=== PATIENT | female | born 1995 | race Hispanic/Latino ===

== ENCOUNTER 2022-12-25 00:35 | Inpatient (IN) | payer BC ==
[~2022-12-25] VITALS: Ht 170.2 cm; Wt 74.8 kg
[2022-12-25] VITALS (21 sets, daily range): BP systolic 94–135; BP diastolic 47–83; PULSE 84–127; RESP 11–30; TEMP 99.1–100; O2SAT 94–100
[2022-12-25] MEDS ORDERED: SODIUM CHLORIDE 0.9% 1000ML 1,000 ML IV STA ×2 (00:40→00:46)
[2022-12-25] MEDS ORDERED: SODIUM CHLORIDE 0.9% 1000ML 1,000 ML ONE (00:50)
[2022-12-25] MEDS ORDERED: SODIUM CHLORIDE 0.9% 1000ML 1,000 ML IV ONE (01:00)
[2022-12-25 01:06] LABS: ABG HCO3 4 mmol/L (22-26); ABG PCO2 11 mmHg (35-45); ABG PO2 128 mmHg (80-105); ABG TCO2 < 5
[2022-12-25] MEDS ORDERED: ONDANSETRON HCL INJ 2MG/ML 2ML 2 MG/ML VIAL ONE (01:13)
[2022-12-25] MEDS: ONDANSETRON HCL INJ 2MG/ML 2ML 2 MG/ML VIAL IV PRN ×3 (01:13→14:56)
[2022-12-25 01:15] LABS: BASOPHILS % 0.3 % (0.0-1.0); EOSINOPHILS % 0.1 % (0.0-6.0); HEMATOCRIT 41.9 % (34.2-44.1); HEMOGLOBIN 13.3 g/dL (12.0-16.0); LYMPHOCYTES # (AUTO) 1.9 (1.0-3.2); LYMPHOCYTES % 16.6 % (18.0-39.1); MEAN CORPUSCULAR HEMOGLOBIN 28.7 pg (28-32); MEAN CORPUSCULAR HGB CONC 31.7 g/dL (31-35); MEAN CORPUSCULAR VOLUME 90.3 fL (81-99); MONOCYTES # (AUTO) 0.6 (0.2-0.8); MONOCYTES % 5.1 % (4.4-11.3); NEUTROPHILS # (AUTO) 8.7 (2.1-6.9); PLATELET COUNT 394 x10e3/uL (140-360); RED BLOOD COUNT 4.64 x10e6/uL (3.6-5.1); RED CELL DISTRIBUTION WIDTH 13.4 % (11.7-14.4); WHITE BLOOD COUNT 11.27 x10e3/uL (4.8-10.8)
[2022-12-25] MEDS: DEXTROSE 5%/0.45% SOD CHL 1,000 ML IV SCH ×3 (01:15→12:35)
[2022-12-25] MEDS ORDERED: POTASSIUM CHLORIDE 20MEQ/100ML 200 ML IV PRN ×2 (01:15→11:15)
[2022-12-25] MEDS ORDERED: Morphine 4mg INJECTION 4 MG/ML INJ IV PRN (01:15)
[2022-12-25] MEDS ORDERED: MAGNESIUM SULF 1GRAM/DEXTROSE 100 ML IV PRN ×2 (01:15→11:15)
[2022-12-25] MEDS: INSULIN REGULAR, HUMAN 3ML VL 100 UNIT in SODIUM CHLORIDE 0.9% 100 ML IV SCH ×4 (01:21→10:20)
[2022-12-25 01:29] LABS: ALANINE AMINOTRANSFERASE 22 IU/L (0-55); ALBUMIN/GLOBULIN RATIO 0.9 (0.8-2.0); ALKALINE PHOSPHATASE 131 IU/L (40-150); ANION GAP 38.3 mmol/L (8-16); BILIRUBIN,TOTAL 0.6 mg/dL (0.2-1.2); BLOOD UREA NITROGEN 14 mg/dL (7-26); BUN/CREATININE RATIO 7 (6-25); CALCIUM 9.5 mg/dL (8.4-10.2); CHLORIDE 94 mmol/L (98-107); EST GLOMERULAR FILTRATION RATE 33 ML/MIN (>=60); POTASSIUM 5.3 mmol/L (3.5-5.1); SODIUM 132 mmol/L (136-145); TOTAL PROTEIN 8.4 g/dL (6.5-8.1)
[2022-12-25 01:33] LABS: CARBON DIOXIDE 5 mmol/L (22-29); GLUCOSE > 800 mg/dL (74-118)
[2022-12-25] MEDS ORDERED: PROMETHAZINE 25MG/ NS 50ML (IV) IV STA (01:50)
[2022-12-25] MEDS ORDERED: IOPAMIDOL 370 MG/ML 100 ML INFUS..BTL INJ ONE (02:09)
[2022-12-25 02:26] LABS: AMPHETAMINES SCREEN,URINE NEGATIVE (NEGATIVE); BENZODIAZEPINES SCREEN,URINE NEGATIVE (NEGATIVE); BILIRUBIN,URINE NEGATIVE (NEGATIVE); CANNABINOIDS SCREEN,URINE NEGATIVE (NEGATIVE); CLARITY,URINE CLEAR (CLEAR); COLOR,URINE YELLOW (YELLOW); GLUCOSE, URINE 500 (NEGATIVE); KETONES,URINE >=160 (NEGATIVE); LEUKOCYTE ESTERASE ,URINE NEGATIVE (NEGATIVE); METHADONE SCREEN, URINE NEGATIVE (NEGATIVE); NITRITE,URINE NEGATIVE (NEGATIVE); OPIATES SCREEN,URINE NEGATIVE (NEGATIVE); PH,URINE 5.5 (5 - 7); PHENCYCLIDINE SCREEN,URINE NEGATIVE (NEGATIVE); PROTEIN,URINE DIPSTICK NEGATIVE (NEGATIVE); URINE UROBILINOGEN 0.2 mg/dL (0.2 - 1)
[2022-12-25] MEDS ORDERED: HUMULIN R100 UNIT/2 SQ (03:15)
[2022-12-25] MEDS ORDERED: LANTUS 3ML100 UNITS/ SQ ×2 (03:15)
[2022-12-25 03:56] LABS: BACTERIA,URINE FEW /HPF; EPITHELIAL CELLS,URINE FEW /LPF; RBC,URINE 0-5 /HPF (0-5); WBC,URINE (MAN) 0-5 /HPF (0-5)
[2022-12-25] MEDS: SODIUM CHLORIDE 0.9% 1000ML 1,000 ML IV SCH ×2 (04:02→08:22)
[2022-12-25 06:00] LABS: ANION GAP 25.2 mmol/L (8-16); CALCIUM 8.5 mg/dL (8.4-10.2); CREATININE, SERUM 1.53 mg/dL (0.57-1.11)
[2022-12-25 06:08] LABS: POTASSIUM 4.2 mmol/L (3.5-5.1)
[2022-12-25] MEDS ORDERED: DEXTROSE 50% SYRINGE 50 ML IV ONE (07:30)
[2022-12-25] MEDS ORDERED: REMDESIVIR 100MG 200 MG in SODIUM CHLORIDE 0.9% 100 ML IV ONE (10:00)
[2022-12-25 11:04] LABS: ANION GAP 15.9 mmol/L (8-16); CALCIUM 8.3 mg/dL (8.4-10.2); MAGNESIUM 1.8 MG/DL (1.3-2.1); POTASSIUM 3.9 mmol/L (3.5-5.1)
[2022-12-25 11:21] LABS: CREATININE, SERUM 1.2 mg/dL (0.57-1.11)
[2022-12-25] MEDS ORDERED: DEXTROSE 50% SYRINGE 50 ML IV PRN ×2 (11:30→13:45)
[2022-12-25] MEDS ORDERED: INSULIN REGULAR, HUMAN 3ML VL 100 UNIT in SODIUM CHLORIDE 0.9% 100 ML IV SCH ×2 (13:45)
[2022-12-25 13:47] LABS: ANION GAP 12.2 mmol/L (8-16); CREATININE, SERUM 1.09 mg/dL (0.57-1.11); MAGNESIUM 1.6 MG/DL (1.3-2.1); POTASSIUM 3.2 mmol/L (3.5-5.1)
[2022-12-25] MEDS ORDERED: D5.45%NS/KCL 20MEQ 1,000 ML IV SCH (14:30)
[2022-12-25] MEDS: D5.45%NS/KCL 20MEQ 1,000 ML IV SCH ×2 (14:46→22:27)
[2022-12-25] MEDS: ACETAMINOPHEN 325 MG TAB PO PRN (14:57)
[2022-12-25] MEDS: ENOXAPARIN SOD INJ 40 MG/0.4 ML SYR SC SCH (16:51)
[2022-12-26] VITALS (20 sets, daily range): BP systolic 100–129; BP diastolic 60–89; PULSE 74–105; RESP 16–26; TEMP 98.6–99; O2SAT 96–100
[2022-12-26] MEDS: D5.45%NS/KCL 20MEQ 1,000 ML IV SCH ×4 (05:18→19:39)
[2022-12-26 06:21] LABS: BASOPHILS % 0.2 % (0.0-1.0); EOSINOPHILS % 0.3 % (0.0-6.0); HEMATOCRIT 33.7 % (34.2-44.1); HEMOGLOBIN 11.4 g/dL (12.0-16.0); LYMPHOCYTES # (AUTO) 1.9 (1.0-3.2); LYMPHOCYTES % 31.9 % (18.0-39.1); MEAN CORPUSCULAR HEMOGLOBIN 28.4 pg (28-32); MEAN CORPUSCULAR HGB CONC 33.8 g/dL (31-35); MONOCYTES # (AUTO) 0.5 (0.2-0.8); MONOCYTES % 7.7 % (4.4-11.3); NEUTROPHILS # (AUTO) 3.6 (2.1-6.9); NEUTROPHILS % 59.4 % (38.7-80.0); PLATELET COUNT 289 x10e3/uL (140-360); RED BLOOD COUNT 4.01 x10e6/uL (3.6-5.1); RED CELL DISTRIBUTION WIDTH 13.1 % (11.7-14.4); WHITE BLOOD COUNT 6.09 x10e3/uL (4.8-10.8)
[2022-12-26 06:49] LABS: ALBUMIN 2.8 g/dL (3.5-5.0); ALBUMIN/GLOBULIN RATIO 0.9 (0.8-2.0); ANION GAP 13.3 mmol/L (8-16); BILIRUBIN,TOTAL 0.5 mg/dL (0.2-1.2); CREATININE, SERUM 0.87 mg/dL (0.57-1.11); POTASSIUM 3.3 mmol/L (3.5-5.1); TOTAL PROTEIN 5.9 g/dL (6.5-8.1)
[2022-12-26] MEDS: ONDANSETRON HCL INJ 2MG/ML 2ML 2 MG/ML VIAL IV PRN (08:47)
[2022-12-26] MEDS: ACETAMINOPHEN 325 MG TAB PO PRN (08:48)
[2022-12-26] MEDS ORDERED: POTASSIUM CHLORIDE 20 MEQ TAB CR PO ONE (12:45)
[2022-12-26] MEDS ORDERED: REMDESIVIR 100MG 100 MG in SODIUM CHLORIDE 0.9% 100 ML IV SCH (14:00)
[2022-12-26] MEDS ORDERED: DEXTROSE 50% SYRINGE 50 ML IV PRN (14:30)
[2022-12-26] MEDS: INSULIN LISPRO 100 UNIT/1 ML 3ML VIAL SQ SCH ×4 (14:57→21:00)
[2022-12-26] MEDS: ENOXAPARIN SOD INJ 40 MG/0.4 ML SYR SC SCH (16:18)
[2022-12-26] MEDS ORDERED: INSULIN GLARGINE 100 UNITS/ML VIAL SQ SCH (17:00)
[2022-12-27] VITALS (12 sets, daily range): BP systolic 105–133; BP diastolic 59–89; PULSE 59–107; RESP 16–21; TEMP 97.8–98.6; O2SAT 94–99
[2022-12-27 06:28] LABS: ANION GAP 13.7 mmol/L (8-16); CALCIUM 8.1 mg/dL (8.4-10.2); CREATININE, SERUM 0.97 mg/dL (0.57-1.11); MAGNESIUM 1.5 MG/DL (1.3-2.1)
[2022-12-27 06:41] LABS: POTASSIUM 4.7 mmol/L (3.5-5.1)
[2022-12-27 07:48] LABS: BASOPHILS % 0.4 % (0.0-1.0); EOSINOPHILS % 0.4 % (0.0-6.0); HEMATOCRIT 34.8 % (34.2-44.1); LYMPHOCYTES # (AUTO) 1.2 (1.0-3.2); LYMPHOCYTES % 24.1 % (18.0-39.1); MEAN CORPUSCULAR HEMOGLOBIN 28.8 pg (28-32); MEAN CORPUSCULAR HGB CONC 34.5 g/dL (31-35); MEAN CORPUSCULAR VOLUME 83.7 fL (81-99); MONOCYTES # (AUTO) 0.4 (0.2-0.8); MONOCYTES % 7.8 % (4.4-11.3); NEUTROPHILS # (AUTO) 3.4 (2.1-6.9); NEUTROPHILS % 67.1 % (38.7-80.0); PLATELET COUNT 246 x10e3/uL (140-360); RED BLOOD COUNT 4.16 x10e6/uL (3.6-5.1); RED CELL DISTRIBUTION WIDTH 12.9 % (11.7-14.4); WHITE BLOOD COUNT 5.02 x10e3/uL (4.8-10.8)
[2022-12-27 08:24] LABS: ANION GAP 17.8 mmol/L (8-16); CALCIUM 8.3 mg/dL (8.4-10.2); CREATININE, SERUM 1.08 mg/dL (0.57-1.11); POTASSIUM 4.8 mmol/L (3.5-5.1)
[2022-12-27] MEDS: INSULIN LISPRO 100 UNIT/1 ML 3ML VIAL SQ SCH ×7 (08:45→20:40)
[2022-12-27] MEDS: D5.45%NS/KCL 20MEQ 1,000 ML IV SCH ×2 (08:56→12:54)
[2022-12-27] MEDS ORDERED: INSULIN GLARGINE 100 UNITS/ML VIAL SQ SCH (09:00)
[2022-12-27] MEDS ORDERED: MAGNESIUM SULFATE 2GM/50ML 50 ML IV ONE (10:00)
[2022-12-27] MEDS: INSULIN GLARGINE 100 UNITS/ML VIAL SQ SCH (17:07)
[2022-12-27] MEDS: ENOXAPARIN SOD INJ 40 MG/0.4 ML SYR SC SCH (17:11)
[2022-12-27] MEDS: DEXTROSE 5%/0.45% SOD CHL 1,000 ML IV SCH ×2 (17:11→23:42)
[2022-12-28] VITALS: BP 129/82; PULSE 68; RESP 20; TEMP 98.7; O2SAT 94
[2022-12-28 04:00] VITALS: BP 121/77; PULSE 70; RESP 20; TEMP 98; O2SAT 98
[2022-12-28 06:46] LABS: BASOPHILS % 0.2 % (0.0-1.0); EOSINOPHILS # (AUTO) 0.1 (0.0-0.4); EOSINOPHILS % 1.4 % (0.0-6.0); HEMATOCRIT 36.2 % (34.2-44.1); HEMOGLOBIN 12.4 g/dL (12.0-16.0); LYMPHOCYTES # (AUTO) 1.9 (1.0-3.2); LYMPHOCYTES % 43.5 % (18.0-39.1); MEAN CORPUSCULAR HEMOGLOBIN 28.5 pg (28-32); MEAN CORPUSCULAR HGB CONC 34.3 g/dL (31-35); MEAN CORPUSCULAR VOLUME 83.2 fL (81-99); MONOCYTES # (AUTO) 0.3 (0.2-0.8); MONOCYTES % 7.6 % (4.4-11.3); NEUTROPHILS % 47.1 % (38.7-80.0); PLATELET COUNT 295 x10e3/uL (140-360); RED BLOOD COUNT 4.35 x10e6/uL (3.6-5.1); RED CELL DISTRIBUTION WIDTH 12.5 % (11.7-14.4); WHITE BLOOD COUNT 4.32 x10e3/uL (4.8-10.8)
[2022-12-28 07:17] LABS: MAGNESIUM 1.6 MG/DL (1.3-2.1); PHOSPHORUS 3.5 MG/DL (2.3-4.7)
[2022-12-28 07:33] LABS: ANION GAP 17.6 mmol/L (8-16); CALCIUM 8.6 mg/dL (8.4-10.2); CREATININE, SERUM 0.81 mg/dL (0.57-1.11); POTASSIUM 3.6 mmol/L (3.5-5.1)
[2022-12-28 08:04] VITALS: BP 122/84; PULSE 63; RESP 17; TEMP 98.2; O2SAT 99
[2022-12-28 08:47] VITALS: BP 122/84; PULSE 63; RESP 17; TEMP 98.2; O2SAT 99
[2022-12-28] MEDS: DEXTROSE 5%/0.45% SOD CHL 1,000 ML IV SCH (09:09)
[2022-12-28] MEDS: INSULIN GLARGINE 100 UNITS/ML VIAL SQ SCH (09:09)
[2022-12-28] MEDS: INSULIN LISPRO 100 UNIT/1 ML 3ML VIAL SQ SCH ×6 (09:10→16:30)
[2022-12-28 11:30] VITALS: BP 123/72; PULSE 71; RESP 19; TEMP 98.2; O2SAT 99
[2022-12-28 15:38] VITALS: BP 122/78; PULSE 79; RESP 16; TEMP 98.2; O2SAT 99
[2022-12-28] MEDS: ENOXAPARIN SOD INJ 40 MG/0.4 ML SYR SC SCH (16:41)
[2022-12-28] MEDS ORDERED: INSULIN GLARGINE 100 UNITS/ML VIAL SQ SCH (17:00)
== END 2022-12-28 18:18 | disposition home or self-care (01) | DRG 637 ==
LOC: ER 00:40 → ERHOLD 01:05 → ICU 02:31 → MED/SURG3 12-27 18:41
PROVIDERS: ADMIT Internal Medicine; ATTEND Internal Medicine
PROC: 4A033R1 Measurement of Arterial Saturation, Peripheral, Percutaneous Approach (ICD-10-PCS; principal; 2022-12-25)
DX: E10.10 Type 1 diabetes mellitus with ketoacidosis without coma (principal); U07.1 COVID-19; N17.9 Acute kidney failure, unspecified; R33.9 Retention of urine, unspecified; K21.9 Gastro-esophageal reflux disease without esophagitis; E86.0 Dehydration; E10.40 Type 1 diabetes mellitus with diabetic neuropathy, unspecified; E87.6 Hypokalemia; E83.42 Hypomagnesemia; Z63.8 Other specified problems related to primary support group; Z79.4 Long term (current) use of insulin; Z59.6 Low income
CPT/HCPCS: 36415; 36600; 74177; 80048; 80053; 80307; 81001; 82805; 82948; 83036; 83690; 83735; 84100; 84702; 85025; 93005; 99284; J0248; J0696; J1650; J1815; J2270; J2405; J2550; J3475; J3480; J7030; J7050; J7799; Q9967; U0002

== ENCOUNTER 2023-11-05 00:26 | Inpatient (IN) | payer BC, OTHER ==
[~2023-11-05] VITALS: Ht 170.2 cm; Wt 77.1 kg
[2023-11-05] VITALS (21 sets, daily range): BP systolic 104–123; BP diastolic 62–81; PULSE 89–121; RESP 16–24; TEMP 97.4–98.6; O2SAT 88–98
[~2023-11-05 00:26] MED LIST: ACETAMINOPHEN325 M1 PO; HUMALOG100 UNIT/3 SC; HUMULIN R100 UNIT/2 SQ; LANTUS 3ML100 UNITS/ SQ; LYUMJEV KW100 UNIT/1 SQ; ONDANSETRON ODT4 MG PO
[2023-11-05] MEDS ORDERED: MAGNESIUM SULF 1GRAM/DEXTROSE 100 ML IV PRN (00:45)
[2023-11-05] MEDS ORDERED: POTASSIUM CHLORIDE 20MEQ/100ML 200 ML IV PRN (00:45)
[2023-11-05 00:51] LABS: BASOPHILS % 0.2 % (0.0-1.0); HEMATOCRIT 47.5 % (34.2-44.1); HEMOGLOBIN 14.9 g/dL (12.0-16.0); LYMPHOCYTES % 7.9 % (18.0-39.1); MEAN CORPUSCULAR HEMOGLOBIN 30.7 pg (28-32); MEAN CORPUSCULAR HGB CONC 31.4 g/dL (31-35); MEAN CORPUSCULAR VOLUME 97.9 fL (81-99); MONOCYTES # (AUTO) 0.6 (0.2-0.8); MONOCYTES % 4.6 % (4.4-11.3); NEUTROPHILS % 86.8 % (38.7-80.0); PLATELET COUNT 413 x10e3/uL (140-360); RED BLOOD COUNT 4.85 x10e6/uL (3.6-5.1); WHITE BLOOD COUNT 12.71 x10e3/uL (4.8-10.8)
[2023-11-05] MEDS ORDERED: ONDANSETRON HCL INJ 2MG/ML 2ML 2 MG/ML VIAL ONE (00:54)
[2023-11-05 01:09] LABS: ALANINE AMINOTRANSFERASE 47 IU/L (0-55); ALBUMIN 4.4 g/dL (3.5-5.0); ALBUMIN/GLOBULIN RATIO 0.8 (0.8-2.0); ALKALINE PHOSPHATASE 198 IU/L (40-150); ANION GAP 38.5 mmol/L (8-16); BLOOD UREA NITROGEN 36 mg/dL (7-26); BUN/CREATININE RATIO 16 (6-25); CHLORIDE 91 mmol/L (98-107); CREATINE KINASE 50 IU/L (29-168); CREATININE, SERUM 2.21 mg/dL (0.57-1.11); EST GLOMERULAR FILTRATION RATE 31 ML/MIN (>=60); POTASSIUM 4.5 mmol/L (3.5-5.1); SODIUM 134 mmol/L (136-145); TOTAL PROTEIN 9.8 g/dL (6.5-8.1)
[2023-11-05] MEDS: ONDANSETRON HCL INJ 2MG/ML 2ML 2 MG/ML VIAL IV PRN (01:10)
[2023-11-05] MEDS: SODIUM CHLORIDE 0.9% 1000ML 2,000 ML IV STA (01:10)
[2023-11-05 01:12] LABS: CALCIUM 10.7 mg/dL (8.4-10.2); CARBON DIOXIDE 9 mmol/L (22-29)
[2023-11-05 01:20] LABS: ABG PH 7.18 (7.35-7.45)
[2023-11-05 01:21] LABS: ABG HCO3 9 mmol/L (22-26); ABG PCO2 24 mmHg (35-45); ABG PO2 127 mmHg (80-105); ABG TCO2 10
[2023-11-05] MEDS: INSULIN REGULAR, HUMAN 3ML VL 100 UNIT in SODIUM CHLORIDE 0.9% 100 ML IV SCH ×2 (01:21→14:23)
[2023-11-05 01:23] LABS: BILIRUBIN,TOTAL 0.6 mg/dL (0.2-1.2)
[2023-11-05 01:26] LABS: GLUCOSE 763 mg/dL (74-118)
[2023-11-05 02:03] LABS: TROPONIN I < 0.001 ng/mL (0-0.300)
[2023-11-05] MEDS: PROMETHAZINE 12.5MG/ NACL 0.9% 50 ML ONE (02:18)
[2023-11-05] MEDS: PROMETHAZINE 25MG/ NS 50ML (IV) IV PRN (02:32)
[2023-11-05] MEDS: SODIUM CHLORIDE 0.9% 1000ML 1,000 ML IV STA (02:33)
[2023-11-05] MEDS: DEXTROSE 5%/0.45% SOD CHL 1,000 ML IV SCH (04:19)
[2023-11-05] MEDS: SODIUM CHLORIDE 0.9% 1000ML 1,000 ML IV SCH (04:20)
[2023-11-05 05:38] LABS: BASOPHILS % 0.2 % (0.0-1.0); HEMATOCRIT 40.3 % (34.2-44.1); HEMOGLOBIN 13.5 g/dL (12.0-16.0); LYMPHOCYTES # (AUTO) 1.2 (1.0-3.2); LYMPHOCYTES % 9.4 % (18.0-39.1); MEAN CORPUSCULAR HEMOGLOBIN 31.2 pg (28-32); MEAN CORPUSCULAR HGB CONC 33.5 g/dL (31-35); MEAN CORPUSCULAR VOLUME 93.1 fL (81-99); MONOCYTES # (AUTO) 0.6 (0.2-0.8); MONOCYTES % 4.4 % (4.4-11.3); NEUTROPHILS # (AUTO) 10.8 (2.1-6.9); NEUTROPHILS % 85.6 % (38.7-80.0); PLATELET COUNT 404 x10e3/uL (140-360); RED BLOOD COUNT 4.33 x10e6/uL (3.6-5.1); RED CELL DISTRIBUTION WIDTH 11.9 % (11.7-14.4); WHITE BLOOD COUNT 12.56 x10e3/uL (4.8-10.8)
[2023-11-05 06:09] LABS: MAGNESIUM 2.1 MG/DL (1.3-2.1); PHOSPHORUS 2.1 MG/DL (2.3-4.7)
[2023-11-05 06:31] LABS: ANION GAP 24.4 mmol/L (8-16); CALCIUM 10.1 mg/dL (8.4-10.2); CREATININE, SERUM 1.46 mg/dL (0.57-1.11); MAGNESIUM 2.1 MG/DL (1.3-2.1); POTASSIUM 4.4 mmol/L (3.5-5.1)
[2023-11-05 06:32] LABS: CREATINE KINASE 41 IU/L (29-168); TROPONIN I < 0.001 ng/mL (0-0.300)
[2023-11-05] MEDS: Morphine 4mg INJECTION 4 MG/ML INJ IV PRN (08:17)
[2023-11-05 11:24] LABS: ANION GAP 15.9 mmol/L (8-16); CALCIUM 8.6 mg/dL (8.4-10.2); CREATININE, SERUM 1.19 mg/dL (0.57-1.11); MAGNESIUM 2.1 MG/DL (1.3-2.1); POTASSIUM 4.9 mmol/L (3.5-5.1)
[2023-11-05] MEDS ORDERED: DEXTROSE 50% SYRINGE 50 ML IV PRN (13:45)
[2023-11-05 18:31] LABS: ANION GAP 19.5 mmol/L (8-16); CALCIUM 8.6 mg/dL (8.4-10.2); CREATININE, SERUM 1.2 mg/dL (0.57-1.11); POTASSIUM 4.5 mmol/L (3.5-5.1)
[2023-11-05 18:32] LABS: CREATINE KINASE 35 IU/L (29-168); TROPONIN I < 0.001 ng/mL (0-0.300)
[2023-11-05] MEDS: INSULIN GLARGINE 100 UNITS/ML VIAL SQ SCH (20:22)
[2023-11-06] VITALS (15 sets, daily range): BP systolic 106–134; BP diastolic 68–87; PULSE 81–111; RESP 16–24; TEMP 98–99; O2SAT 92–99
[2023-11-06 06:55] LABS: BASOPHILS % 0.2 % (0.0-1.0); EOSINOPHILS % 0.2 % (0.0-6.0); HEMATOCRIT 35.2 % (34.2-44.1); HEMOGLOBIN 11.3 g/dL (12.0-16.0); LYMPHOCYTES # (AUTO) 2.9 (1.0-3.2); LYMPHOCYTES % 27.6 % (18.0-39.1); MEAN CORPUSCULAR HEMOGLOBIN 30.9 pg (28-32); MEAN CORPUSCULAR HGB CONC 32.1 g/dL (31-35); MEAN CORPUSCULAR VOLUME 96.2 fL (81-99); MONOCYTES # (AUTO) 0.5 (0.2-0.8); MONOCYTES % 4.3 % (4.4-11.3); NEUTROPHILS % 67.3 % (38.7-80.0); PLATELET COUNT 312 x10e3/uL (140-360); RED BLOOD COUNT 3.66 x10e6/uL (3.6-5.1); RED CELL DISTRIBUTION WIDTH 12.6 % (11.7-14.4); WHITE BLOOD COUNT 10.38 x10e3/uL (4.8-10.8)
[2023-11-06 07:37] LABS: ALBUMIN 2.9 g/dL (3.5-5.0); ALBUMIN/GLOBULIN RATIO 0.9 (0.8-2.0); ANION GAP 16.5 mmol/L (8-16); BILIRUBIN,TOTAL 0.5 mg/dL (0.2-1.2); CALCIUM 8.5 mg/dL (8.4-10.2); CREATININE, SERUM 1.06 mg/dL (0.57-1.11); POTASSIUM 3.5 mmol/L (3.5-5.1); TOTAL PROTEIN 6.3 g/dL (6.5-8.1)
[2023-11-06 08:04] LABS: CREATINE KINASE 32 IU/L (29-168)
[2023-11-06 08:13] LABS: TROPONIN I < 0.001 ng/mL (0-0.300)
[2023-11-06] MEDS: INSULIN LISPRO 100 UNIT/1 ML 3ML VIAL SQ ONE (14:06)
[2023-11-06] MEDS: INSULIN LISPRO 100 UNIT/1 ML 3ML VIAL SQ SCH ×2 (16:46→16:47)
[2023-11-06] MEDS: INSULIN GLARGINE 100 UNITS/ML VIAL SQ SCH (20:39)
[2023-11-07] VITALS (17 sets, daily range): BP systolic 107–136; BP diastolic 61–88; PULSE 62–92; RESP 15–22; TEMP 98–98.2; O2SAT 94–99
[2023-11-07] MEDS: DEXTROSE 5%/0.45% SOD CHL 1,000 ML IV SCH (00:40)
[2023-11-07] MEDS: ACETAMINOPHEN 325 MG TAB PO PRN (00:40)
[2023-11-07] MEDS: INSULIN GLARGINE 100 UNITS/ML VIAL SQ ONE (14:07)
[2023-11-07] MEDS: INSULIN LISPRO 100 UNIT/1 ML 3ML VIAL SQ SCH (16:57)
[2023-11-07] MEDS ORDERED: INSULIN GLARGINE 100 UNITS/ML VIAL SQ SCH (21:00)
== END 2023-11-07 17:00 | disposition home or self-care (01) | DRG 638 ==
LOC: ER 00:30 → ERHOLD 00:47 → ICU 02:06
PROVIDERS: ADMIT Internal Medicine; ATTEND Internal Medicine
PROC: 4A03XR1 Measurement of Arterial Saturation, Peripheral, External Approach (ICD-10-PCS; principal; 2023-11-05)
DX: E10.10 Type 1 diabetes mellitus with ketoacidosis without coma (principal); N17.9 Acute kidney failure, unspecified; E86.0 Dehydration; E83.41 Hypermagnesemia; Z86.73 Personal history of transient ischemic attack (TIA), and cerebral infarction without residual deficits; Z90.49 Acquired absence of other specified parts of digestive tract; Z88.6 Allergy status to analgesic agent; Z88.1 Allergy status to other antibiotic agents; Z79.85 Long-term (current) use of injectable non-insulin antidiabetic drugs; Z79.890 Hormone replacement therapy; N39.41 Urge incontinence; N32.81 Overactive bladder
CPT/HCPCS: 36415; 36600; 71045; 80048; 80053; 82550; 82805; 82948; 83036; 83690; 83735; 83880; 84100; 84443; 84484; 84702; 85025; 93005; 99252; 99284; J0696; J1815; J2270; J2405; J2470; J2550; J7030; J7050; U0002

== ENCOUNTER 2023-12-29 14:58 | Inpatient (IN) | payer BC, OTHER ==
[~2023-12-29] VITALS: Ht 170.2 cm; Wt 81.7 kg
[2023-12-29 16:28] LABS: BASOPHILS % 0.3 % (0.0-1.0); HEMATOCRIT 41.8 % (34.2-44.1); HEMOGLOBIN 14.1 g/dL (12.0-16.0); LYMPHOCYTES # (AUTO) 1.2 (1.0-3.2); MEAN CORPUSCULAR HEMOGLOBIN 30.7 pg (28-32); MEAN CORPUSCULAR HGB CONC 33.7 g/dL (31-35); MEAN CORPUSCULAR VOLUME 91.1 fL (81-99); MONOCYTES # (AUTO) 0.5 (0.2-0.8); MONOCYTES % 6.6 % (4.4-11.3); NEUTROPHILS # (AUTO) 5.5 (2.1-6.9); NEUTROPHILS % 75.8 % (38.7-80.0); PLATELET COUNT 309 x10e3/uL (140-360); RED BLOOD COUNT 4.59 x10e6/uL (3.6-5.1); RED CELL DISTRIBUTION WIDTH 11.9 % (11.7-14.4); WHITE BLOOD COUNT 7.25 x10e3/uL (4.8-10.8)
[2023-12-29 16:36] LABS: INR 0.87; PARTIAL THROMBOPLASTIN TIME 23.9 seconds (23.8-35.5); PROTHROMBIN TIME 12.4 seconds (11.9-14.5)
[2023-12-29 16:47] LABS: ALANINE AMINOTRANSFERASE 31 IU/L (0-55); ALBUMIN 4.1 g/dL (3.5-5.0); ALBUMIN/GLOBULIN RATIO 0.9 (0.8-2.0); ALKALINE PHOSPHATASE 130 IU/L (40-150); ANION GAP 25.2 mmol/L (8-16); BILIRUBIN,TOTAL 0.3 mg/dL (0.2-1.2); BLOOD UREA NITROGEN 30 mg/dL (7-26); BUN/CREATININE RATIO 17 (6-25); CALCIUM 10.4 mg/dL (8.4-10.2); CARBON DIOXIDE 17 mmol/L (22-29); CHLORIDE 104 mmol/L (98-107); CREATINE KINASE 40 IU/L (29-168); CREATININE, SERUM 1.77 mg/dL (0.57-1.11); EST GLOMERULAR FILTRATION RATE 40 ML/MIN (>=60); GLUCOSE 79 mg/dL (74-118); LIPASE 23 U/L (8-78); MAGNESIUM 2.2 MG/DL (1.3-2.1); SODIUM 141 mmol/L (136-145); TOTAL PROTEIN 8.9 g/dL (6.5-8.1)
[2023-12-29 16:52] LABS: POTASSIUM 5.2 mmol/L (3.5-5.1)
[2023-12-29 16:53] LABS: TROPONIN I 0.001 ng/mL (0-0.300)
[2023-12-29] MEDS ORDERED: DEXTROSE 50% SYRINGE 50 ML IV ONE (17:44)
[2023-12-29 17:49] LABS: ANION GAP 21.5 mmol/L (8-16); CALCIUM 10.7 mg/dL (8.4-10.2); CREATININE, SERUM 1.64 mg/dL (0.57-1.11); POTASSIUM 4.5 mmol/L (3.5-5.1)
[2023-12-29] MEDS: SODIUM CHLORIDE 0.9% 1000ML 1,000 ML IV STA ×2 (17:57→17:58)
[2023-12-29] MEDS: ONDANSETRON HCL INJ 2MG/ML 2ML 2 MG/ML VIAL IV STA (17:58)
[2023-12-29] MEDS: DEXTROSE 50% SYRINGE 50 ML IV ONE (17:58)
[2023-12-29 18:52] LABS: ABG PH 7.43 (7.35-7.45)
[2023-12-29 18:53] LABS: ABG HCO3 26 mmol/L (22-26); ABG PCO2 40 mmHg (35-45); ABG PO2 95 mmHg (80-105); ABG TCO2 27
[2023-12-29 19:03] VITALS: TEMP 98.5
[2023-12-29] MEDS: DIPHENHYDRAMINE HCL INJ 50 MG/ML VIAL IV ONE (19:32)
[2023-12-29] MEDS: METOCLOPRAMIDE HCL 10 MG/2ML VIAL IV SCH (19:32)
[2023-12-29] MEDS ORDERED: ONDANSETRON HCL INJ 2MG/ML 2ML 2 MG/ML VIAL IV PRN (20:15)
[2023-12-29] MEDS ORDERED: DEXTROSE 50% SYRINGE 50 ML IV PRN (20:30)
[2023-12-29] MEDS: INSULIN LISPRO 100 UNIT/1 ML 3ML VIAL SQ SCH (21:00)
[2023-12-29] MEDS: DEXTROSE 5%/0.45% SOD CHL 1,000 ML IV SCH (22:04)
[2023-12-29] MEDS: INSULIN GLARGINE 100 UNITS/ML VIAL SC ONE (22:04)
[2023-12-29 22:09] VITALS: PULSE 89; RESP 17
[2023-12-30] VITALS (24 sets, daily range): BP systolic 91–112; BP diastolic 58–77; PULSE 60–92; RESP 14–22; TEMP 98.2–98.9; O2SAT 96–100
[2023-12-30] MEDS: DIPHENHYDRAMINE HCL INJ 50 MG/ML VIAL IV SCH (02:04)
[2023-12-30 07:13] LABS: BASOPHILS % 0.3 % (0.0-1.0); EOSINOPHILS # (AUTO) 0.1 (0.0-0.4); EOSINOPHILS % 0.7 % (0.0-6.0); HEMATOCRIT 35.5 % (34.2-44.1); HEMOGLOBIN 12.1 g/dL (12.0-16.0); LYMPHOCYTES # (AUTO) 2.1 (1.0-3.2); LYMPHOCYTES % 30.7 % (18.0-39.1); MEAN CORPUSCULAR HEMOGLOBIN 30.8 pg (28-32); MEAN CORPUSCULAR HGB CONC 34.1 g/dL (31-35); MEAN CORPUSCULAR VOLUME 90.3 fL (81-99); MONOCYTES # (AUTO) 0.5 (0.2-0.8); MONOCYTES % 7.4 % (4.4-11.3); NEUTROPHILS # (AUTO) 4.2 (2.1-6.9); NEUTROPHILS % 60.8 % (38.7-80.0); PLATELET COUNT 315 x10e3/uL (140-360); RED BLOOD COUNT 3.93 x10e6/uL (3.6-5.1); RED CELL DISTRIBUTION WIDTH 12.1 % (11.7-14.4)
[2023-12-30 07:40] LABS: ALBUMIN 3.2 g/dL (3.5-5.0); ALBUMIN/GLOBULIN RATIO 0.9 (0.8-2.0); ANION GAP 15.7 mmol/L (8-16); BILIRUBIN,TOTAL 0.4 mg/dL (0.2-1.2); CALCIUM 8.8 mg/dL (8.4-10.2); CREATININE, SERUM 1.26 mg/dL (0.57-1.11); POTASSIUM 3.7 mmol/L (3.5-5.1); TOTAL PROTEIN 6.6 g/dL (6.5-8.1)
[2023-12-30] MEDS: ACETAMINOPHEN 325 MG TAB PO PRN (11:24)
[2023-12-30 11:30] LABS: AMPHETAMINES SCREEN,URINE NEGATIVE (NEGATIVE); BENZODIAZEPINES SCREEN,URINE NEGATIVE (NEGATIVE); CANNABINOIDS SCREEN,URINE NEGATIVE (NEGATIVE); COCAINE SCREEN,URINE NEGATIVE (NEGATIVE); METHADONE SCREEN, URINE NEGATIVE (NEGATIVE); OPIATES SCREEN,URINE NEGATIVE (NEGATIVE); PHENCYCLIDINE SCREEN,URINE NEGATIVE (NEGATIVE)
[2023-12-30 11:33] LABS: BILIRUBIN,URINE SMALL (NEGATIVE); CLARITY,URINE CLEAR (CLEAR); COLOR,URINE YELLOW (YELLOW); GLUCOSE, URINE 500 (NEGATIVE); KETONES,URINE 2+ (NEGATIVE); LEUKOCYTE ESTERASE ,URINE TRACE (NEGATIVE); NITRITE,URINE NEGATIVE (NEGATIVE); PH,URINE 5.5 (5 - 7); PROTEIN,URINE DIPSTICK 1+ (NEGATIVE); URINE UROBILINOGEN 0.2 mg/dL (0.2 - 1)
[2023-12-30 11:52] LABS: BACTERIA,URINE FEW /HPF; EPITHELIAL CELLS,URINE MODERATE /LPF; RBC,URINE 0-5 /HPF (0-5)
[2023-12-30 11:53] LABS: MUCUS,URINE MODERATE (RARE)
[2023-12-30 13:29] LABS: ABG HCO3 26 mmol/L (22-26); ABG PCO2 40 mmHg (35-45); ABG PH 7.43 (7.35-7.45); ABG PO2 95 mmHg (80-105); ABG TCO2 27
[2023-12-30] MEDS ORDERED: DIPHENHYDRAMINE HCL INJ 50 MG/ML VIAL IV PRN (15:45)
[2023-12-30] MEDS: INSULIN GLARGINE 100 UNITS/ML VIAL SQ SCH (20:24)
[2023-12-31] VITALS (7 sets, daily range): BP systolic 102–110; BP diastolic 71–86; PULSE 63–81; RESP 14–21; TEMP 97.8–98.7; O2SAT 97–99
[2023-12-31 07:51] LABS: ANION GAP 14.9 mmol/L (8-16); CREATININE, SERUM 0.85 mg/dL (0.57-1.11); MAGNESIUM 1.9 MG/DL (1.3-2.1); POTASSIUM 3.9 mmol/L (3.5-5.1)
[2023-12-31 07:53] LABS: CHOL/HDL RATIO 3.9 (3.0-3.6); PHOSPHORUS 2.6 MG/DL (2.3-4.7)
[2023-12-31 08:13] LABS: THYROID STIMULATING HORMONE 1.896 uIU/mL (0.350-4.940)
== END 2023-12-31 12:45 | disposition home or self-care (01) | DRG 638 ==
LOC: ER 15:28 → ERHOLD 20:12 → ICU 23:55
PROVIDERS: ADMIT Internal Medicine; ATTEND Internal Medicine
PROC: 4A133R1 Monitoring of Arterial Saturation, Peripheral, Percutaneous Approach (ICD-10-PCS; principal; 2023-12-29)
DX: E10.10 Type 1 diabetes mellitus with ketoacidosis without coma (principal); N17.9 Acute kidney failure, unspecified; E86.0 Dehydration; Z79.4 Long term (current) use of insulin; R53.81 Other malaise
CPT/HCPCS: 36415; 36600; 71045; 74176; 80048; 80053; 80061; 80307; 81001; 82550; 82805; 82948; 83036; 83605; 83690; 83735; 84100; 84443; 84484; 84702; 85025; 85610; 85730; 87040; 87086; 93005; 96372; 99284; J1200; J1815; J2405; J2470; J2765; J7799

== ENCOUNTER 2024-01-06 14:26 | Inpatient (IN) | payer BC, OTHER ==
[~2024-01-06] VITALS: Ht 167.6 cm; Wt 82.7 kg
[2024-01-06] VITALS (26 sets, daily range): BP systolic 99–153; BP diastolic 61–120; PULSE 122–147; RESP 18–38; TEMP 97.8–99.6; O2SAT 96–100
[2024-01-06] MEDS ORDERED: SODIUM CHLORIDE 0.9% 1000ML 3,000 ML ONE (14:30)
[2024-01-06] MEDS: SODIUM CHLORIDE 0.9% 1000ML 1,000 ML IV SCH ×2 (14:30→15:36)
[2024-01-06] MEDS: SODIUM CHLORIDE 0.9% 1000ML 1,000 ML IV STA (14:36)
[2024-01-06] MEDS ORDERED: ONDANSETRON HCL INJ 2MG/ML 2ML 2 MG/ML VIAL ONE (14:40)
[2024-01-06] MEDS ORDERED: POTASSIUM CHLORIDE 20MEQ/100ML 200 ML IV PRN (14:45)
[2024-01-06 14:47] LABS: BILIRUBIN,URINE NEGATIVE (NEGATIVE); CLARITY,URINE CLEAR (CLEAR); COLOR,URINE YELLOW (YELLOW); GLUCOSE, URINE 500 (NEGATIVE); KETONES,URINE 2+ (NEGATIVE); LEUKOCYTE ESTERASE ,URINE NEGATIVE (NEGATIVE); NITRITE,URINE NEGATIVE (NEGATIVE); PH,URINE 5.5 (5 - 7); PROTEIN,URINE DIPSTICK 1+ (NEGATIVE); URINE UROBILINOGEN 0.2 mg/dL (0.2 - 1)
[2024-01-06 14:55] LABS: BACTERIA,URINE FEW /HPF; EPITHELIAL CELLS,URINE FEW /LPF; RBC,URINE 0-5 /HPF (0-5); WBC,URINE (MAN) 0-5 /HPF (0-5)
[2024-01-06 14:59] LABS: ALANINE AMINOTRANSFERASE 30 IU/L (0-55); ALBUMIN 4.7 g/dL (3.5-5.0); ALKALINE PHOSPHATASE 173 IU/L (40-150); BILIRUBIN,TOTAL 0.5 mg/dL (0.2-1.2); BLOOD UREA NITROGEN 37 mg/dL (7-26); BUN/CREATININE RATIO 15 (6-25); CHLORIDE 88 mmol/L (98-107); CREATININE, SERUM 2.49 mg/dL (0.57-1.11); EST GLOMERULAR FILTRATION RATE 27 ML/MIN (>=60); MAGNESIUM 2.7 MG/DL (1.3-2.1); SODIUM 128 mmol/L (136-145); TOTAL PROTEIN 9.6 g/dL (6.5-8.1)
[2024-01-06 15:00] LABS: BASOPHILS % 0.2 % (0.0-1.0); EOSINOPHILS % 0.1 % (0.0-6.0); HEMATOCRIT 50.6 % (34.2-44.1); LYMPHOCYTES # (AUTO) 1.6 (1.0-3.2); LYMPHOCYTES % 6.7 % (18.0-39.1); MEAN CORPUSCULAR HEMOGLOBIN 30.5 pg (28-32); MEAN CORPUSCULAR HGB CONC 29.6 g/dL (31-35); MEAN CORPUSCULAR VOLUME 102.8 fL (81-99); MONOCYTES # (AUTO) 1.1 (0.2-0.8); MONOCYTES % 4.9 % (4.4-11.3); NEUTROPHILS # (AUTO) 20.4 (2.1-6.9); NEUTROPHILS % 87.4 % (38.7-80.0); PLATELET COUNT 401 x10e3/uL (140-360); RED BLOOD COUNT 4.92 x10e6/uL (3.6-5.1); RED CELL DISTRIBUTION WIDTH 12.3 % (11.7-14.4); WHITE BLOOD COUNT 23.34 x10e3/uL (4.8-10.8)
[2024-01-06 15:05] LABS: CALCIUM 10.5 mg/dL (8.4-10.2)
[2024-01-06 15:09] LABS: CARBON DIOXIDE 5 mmol/L (22-29); GLUCOSE > 800 mg/dL (74-118)
[2024-01-06 15:19] LABS: AMPHETAMINES SCREEN,URINE NEGATIVE (NEGATIVE); BENZODIAZEPINES SCREEN,URINE NEGATIVE (NEGATIVE); CANNABINOIDS SCREEN,URINE NEGATIVE (NEGATIVE); COCAINE SCREEN,URINE NEGATIVE (NEGATIVE); METHADONE SCREEN, URINE NEGATIVE (NEGATIVE); OPIATES SCREEN,URINE NEGATIVE (NEGATIVE); PHENCYCLIDINE SCREEN,URINE NEGATIVE (NEGATIVE)
[2024-01-06 15:24] LABS: BAND NEUTROPHILS % (MANUAL) 5 %; LYMPHOCYTES % (MANUAL) 3 % (19-48); MONOCYTES % (MANUAL) 2 % (3.4-9.0); NEUTROPHILS % (MANUAL) 90 % (40-74)
[2024-01-06] MEDS: ONDANSETRON HCL INJ 2MG/ML 2ML 2 MG/ML VIAL IV STA (15:24)
[2024-01-06 15:25] LABS: PLATELET ESTIMATE ADEQUATE; PLATELET MORPHOLOGY COMMENT FEW EDTA CLUMPING; RBC MORPHOLOGY COMMENT NORMAL
[2024-01-06] MEDS: SODIUM BICARBONATE 8.4% INJ 50 ML SYR IV STA (15:30)
[2024-01-06] MEDS ORDERED: SODIUM CHLORIDE 0.9% 1000ML 1,000 ML IV SCH (15:30)
[2024-01-06] MEDS: INSULIN REGULAR, HUMAN 3ML VL 100 UNIT in SODIUM CHLORIDE 0.9% 100 ML IV SCH (15:51)
[2024-01-06 18:03] LABS: BLOOD UREA NITROGEN 35 mg/dL (7-26); BUN/CREATININE RATIO 19 (6-25); CALCIUM 9.1 mg/dL (8.4-10.2); CHLORIDE 104 mmol/L (98-107); CREATININE, SERUM 1.84 mg/dL (0.57-1.11); EST GLOMERULAR FILTRATION RATE 38 ML/MIN (>=60); SODIUM 138 mmol/L (136-145)
[2024-01-06 18:21] LABS: ANION GAP 35.4 mmol/L (8-16)
[2024-01-06 18:23] LABS: CARBON DIOXIDE < 5 mmol/L (22-29); GLUCOSE 680 mg/dL (74-118); POTASSIUM 6.4 mmol/L (3.5-5.1)
[2024-01-06] MEDS: ONDANSETRON HCL INJ 2MG/ML 2ML 2 MG/ML VIAL IV PRN (19:14)
[2024-01-06] MEDS: MAGNESIUM SULFATE 2GM/50ML 50 ML IV ONE (19:29)
[2024-01-06] MEDS: MAGNESIUM SULF 1GRAM/DEXTROSE 100 ML IV ONE (19:29)
[2024-01-06] MEDS: DEXTROSE 5%/0.45% SOD CHL 1,000 ML IV SCH (20:10)
[2024-01-06] MEDS ORDERED: GUAIFENESIN/DEXTROMETHORPHAN LIQD 5 ML UDC PO PRN (21:00)
[2024-01-06] MEDS ORDERED: MELATONIN 3 MG TAB PO PRN (21:00)
[2024-01-06] MEDS ORDERED: DOCUSATE SODIUM 100 MG CAP PO PRN (21:00)
[2024-01-06] MEDS ORDERED: HYDRALAZINE HCL 20 MG/ML VIAL IV PRN (21:00)
[2024-01-06] MEDS ORDERED: MAGNESIUM/ALUMINUM/SIMETHICONE 30 ML UDC PO PRN (21:00)
[2024-01-06 23:03] LABS: ALBUMIN 3.8 g/dL (3.5-5.0); ANION GAP 21.2 mmol/L (8-16); BILIRUBIN,TOTAL 0.4 mg/dL (0.2-1.2); CALCIUM 9.4 mg/dL (8.4-10.2); CREATININE, SERUM 1.58 mg/dL (0.57-1.11); MAGNESIUM 3.4 MG/DL (1.3-2.1); POTASSIUM 4.2 mmol/L (3.5-5.1); TOTAL PROTEIN 7.6 g/dL (6.5-8.1)
[2024-01-07] VITALS (44 sets, daily range): BP systolic 104–149; BP diastolic 60–90; PULSE 95–135; RESP 14–29; TEMP 97.9–99.3; O2SAT 95–100
[2024-01-07] MEDS: ACETAMINOPHEN 325 MG TAB PO PRN (02:56)
[2024-01-07 03:15] LABS: ANION GAP 19.3 mmol/L (8-16); CALCIUM 9.3 mg/dL (8.4-10.2); CREATININE, SERUM 1.33 mg/dL (0.57-1.11); POTASSIUM 4.3 mmol/L (3.5-5.1)
[2024-01-07 05:21] LABS: ABG HCO3 6 mmol/L (22-26); ABG PCO2 22 mmHg (35-45); ABG PH 7.05 (7.35-7.45); ABG PO2 100 mmHg (80-105); ABG TCO2 7
[2024-01-07 07:24] LABS: ANION GAP 22.8 mmol/L (8-16); CREATININE, SERUM 1.43 mg/dL (0.57-1.11); MAGNESIUM 2.5 MG/DL (1.3-2.1); PHOSPHORUS 2.2 MG/DL (2.3-4.7); POTASSIUM 3.8 mmol/L (3.5-5.1)
[2024-01-07 07:27] LABS: THYROID STIMULATING HORMONE 0.246 uIU/mL (0.350-4.940)
[2024-01-07] MEDS: MULTIVITAMINS/MINERALS TAB PO SCH (08:07)
[2024-01-07 14:00] LABS: ANION GAP 16.6 mmol/L (8-16); CALCIUM 9.3 mg/dL (8.4-10.2); CREATININE, SERUM 1.32 mg/dL (0.57-1.11); MAGNESIUM 2.4 MG/DL (1.3-2.1); POTASSIUM 3.6 mmol/L (3.5-5.1)
[2024-01-07] MEDS ORDERED: DEXTROSE 50% SYRINGE 50 ML IV PRN (14:15)
[2024-01-07] MEDS ORDERED: DEXTROSE 5%/0.45% SOD CHL 1,000 ML IV SCH (15:30)
[2024-01-07] MEDS: ENOXAPARIN SOD INJ 40 MG/0.4 ML SYR SC SCH (17:03)
[2024-01-07] MEDS: INSULIN REGULAR, HUMAN 3ML VL 100 UNIT in SODIUM CHLORIDE 0.9% 100 ML IV SCH (19:59)
[2024-01-07 20:58] LABS: ANION GAP 17.6 mmol/L (8-16); CALCIUM 8.8 mg/dL (8.4-10.2); CREATININE, SERUM 1.1 mg/dL (0.57-1.11); MAGNESIUM 2.1 MG/DL (1.3-2.1); POTASSIUM 3.6 mmol/L (3.5-5.1)
[2024-01-08] VITALS (25 sets, daily range): BP systolic 104–143; BP diastolic 65–84; PULSE 36–108; RESP 13–30; TEMP 98.4–99.7; O2SAT 88–100
[2024-01-08 07:36] LABS: ALBUMIN/GLOBULIN RATIO 1.1 (0.8-2.0); ANION GAP 13.3 mmol/L (8-16); BILIRUBIN,TOTAL 0.7 mg/dL (0.2-1.2); CALCIUM 8.4 mg/dL (8.4-10.2); CREATININE, SERUM 0.88 mg/dL (0.57-1.11); TOTAL PROTEIN 5.8 g/dL (6.5-8.1)
[2024-01-08 07:41] LABS: POTASSIUM 3.3 mmol/L (3.5-5.1)
[2024-01-08] MEDS ORDERED: POTASSIUM CHLORIDE 10MEQ EA PO ONE (09:45)
[2024-01-08] MEDS: POTASSIUM CHLORIDE 20 MEQ TAB CR PO ONE (10:18)
[2024-01-08] MEDS: INSULIN GLARGINE 100 UNITS/ML VIAL SQ SCH (20:14)
[2024-01-09] VITALS (20 sets, daily range): BP systolic 102–122; BP diastolic 62–89; PULSE 62–87; RESP 13–22; TEMP 98.7–100; O2SAT 96–100
[2024-01-09 06:24] LABS: BASOPHILS % 0.3 % (0.0-1.0); EOSINOPHILS % 0.3 % (0.0-6.0); HEMATOCRIT 34.3 % (34.2-44.1); HEMOGLOBIN 11.2 g/dL (12.0-16.0); LYMPHOCYTES # (AUTO) 2.3 (1.0-3.2); LYMPHOCYTES % 32.2 % (18.0-39.1); MEAN CORPUSCULAR HEMOGLOBIN 30.6 pg (28-32); MEAN CORPUSCULAR HGB CONC 32.7 g/dL (31-35); MEAN CORPUSCULAR VOLUME 93.7 fL (81-99); MONOCYTES # (AUTO) 0.4 (0.2-0.8); MONOCYTES % 5.7 % (4.4-11.3); NEUTROPHILS # (AUTO) 4.4 (2.1-6.9); NEUTROPHILS % 61.2 % (38.7-80.0); PLATELET COUNT 213 x10e3/uL (140-360); RED BLOOD COUNT 3.66 x10e6/uL (3.6-5.1); RED CELL DISTRIBUTION WIDTH 11.8 % (11.7-14.4); WHITE BLOOD COUNT 7.24 x10e3/uL (4.8-10.8)
[2024-01-09 06:52] LABS: ANION GAP 13.2 mmol/L (8-16); BLOOD UREA NITROGEN < 5 mg/dL (7-26); CALCIUM 8.3 mg/dL (8.4-10.2); CARBON DIOXIDE 22 mmol/L (22-29); CHLORIDE 105 mmol/L (98-107); CREATININE, SERUM 0.73 mg/dL (0.57-1.11); EST GLOMERULAR FILTRATION RATE 116 ML/MIN (>=60); GLUCOSE 147 mg/dL (74-118); MAGNESIUM 1.7 MG/DL (1.3-2.1); SODIUM 137 mmol/L (136-145)
[2024-01-09 06:53] LABS: BUN/CREATININE RATIO 7 (6-25); POTASSIUM 3.2 mmol/L (3.5-5.1)
[2024-01-09] MEDS: POTASSIUM PHOSPHATE 15 MM in SODIUM CHLORIDE 0.9% 250ML 250 ML IV ONE (09:23)
[2024-01-09] MEDS: INSULIN LISPRO 100 UNIT/1 ML 3ML VIAL SQ ONE (15:06)
[2024-01-09] MEDS: INSULIN LISPRO 100 UNIT/1 ML 3ML VIAL SQ SCH ×2 (18:12)
[2024-01-09] MEDS: MAGNESIUM SULF 1GRAM/DEXTROSE 100 ML IV PRN (18:38)
[2024-01-09] MEDS: DEXTROSE 5%/0.45% SOD CHL 1,000 ML IV SCH (18:44)
[2024-01-09] MEDS: INSULIN GLARGINE 100 UNITS/ML VIAL SQ SCH (21:28)
[2024-01-10] VITALS (18 sets, daily range): BP systolic 93–124; BP diastolic 62–88; PULSE 61–92; RESP 15–26; TEMP 98.6–100; O2SAT 94–100
[2024-01-10 07:10] LABS: ANION GAP 12.8 mmol/L (8-16); CALCIUM 8.5 mg/dL (8.4-10.2); CREATININE, SERUM 0.78 mg/dL (0.57-1.11); MAGNESIUM 1.8 MG/DL (1.3-2.1); PHOSPHORUS 2.7 MG/DL (2.3-4.7); POTASSIUM 3.8 mmol/L (3.5-5.1)
[2024-01-10] MEDS ORDERED: INSULIN LISPRO 100 UNIT/1 ML 3ML VIAL SQ SCH (16:30)
[2024-01-10] MEDS ORDERED: INSULIN GLARGINE 100 UNITS/ML VIAL SQ SCH (21:00)
== END 2024-01-10 15:58 | disposition home or self-care (01) | DRG 637 ==
LOC: ER 14:31 → ERHOLD 16:47 → ICU 17:24
PROVIDERS: ADMIT Internal Medicine; ATTEND Internal Medicine
PROC: 4A133R1 Monitoring of Arterial Saturation, Peripheral, Percutaneous Approach (ICD-10-PCS; principal; 2024-01-06)
PROC: 0T9B70Z Drainage of Bladder with Drainage Device, Via Natural or Artificial Opening (ICD-10-PCS; 2024-01-06)
DX: E10.10 Type 1 diabetes mellitus with ketoacidosis without coma (principal); G92.8 Other toxic encephalopathy; N17.9 Acute kidney failure, unspecified; E87.5 Hyperkalemia; E87.6 Hypokalemia; E86.0 Dehydration; E10.40 Type 1 diabetes mellitus with diabetic neuropathy, unspecified; E83.42 Hypomagnesemia; T38.3X6A Underdosing of insulin and oral hypoglycemic [antidiabetic] drugs, initial encounter; Z91.128 Patient's intentional underdosing of medication regimen for other reason
CPT/HCPCS: 36415; 51700; 71045; 80048; 80053; 80307; 80320; 81001; 82805; 82948; 83036; 83735; 84100; 84443; 84702; 85025; 93005; 99252; 99285; J1650; J1815; J2405; J3475; J7030; J7050

== ENCOUNTER 2024-01-16 14:17 | Emergency (ER) | payer BC, OTHER ==
[~2024-01-16] VITALS: Ht 167.6 cm; Wt 82.6 kg
[2024-01-16 14:41] VITALS: TEMP 98.3
[2024-01-16 15:17] LABS: ABG HCO3 24 mmol/L (22-26); ABG PCO2 42 mmHg (35-45); ABG PH 7.36 (7.35-7.45); ABG PO2 100 mmHg (80-105); ABG TCO2 25
[2024-01-16 15:18] LABS: BASOPHILS % 0.3 % (0.0-1.0); EOSINOPHILS % 0.7 % (0.0-6.0); HEMATOCRIT 39.5 % (34.2-44.1); HEMOGLOBIN 12.9 g/dL (12.0-16.0); LYMPHOCYTES # (AUTO) 1.8 (1.0-3.2); LYMPHOCYTES % 31.2 % (18.0-39.1); MEAN CORPUSCULAR HEMOGLOBIN 30.6 pg (28-32); MEAN CORPUSCULAR HGB CONC 32.7 g/dL (31-35); MEAN CORPUSCULAR VOLUME 93.8 fL (81-99); MONOCYTES # (AUTO) 0.4 (0.2-0.8); MONOCYTES % 6.1 % (4.4-11.3); NEUTROPHILS # (AUTO) 3.5 (2.1-6.9); NEUTROPHILS % 61.4 % (38.7-80.0); PLATELET COUNT 365 x10e3/uL (140-360); RED BLOOD COUNT 4.21 x10e6/uL (3.6-5.1); WHITE BLOOD COUNT 5.73 x10e3/uL (4.8-10.8)
[2024-01-16 15:24] LABS: CLARITY,URINE TURBID (CLEAR); COLOR,URINE YELLOW (YELLOW); LEUKOCYTE ESTERASE ,URINE NEGATIVE (NEGATIVE); NITRITE,URINE NEGATIVE (NEGATIVE); PH,URINE 5.5 (5 - 7); PROTEIN,URINE DIPSTICK NEGATIVE (NEGATIVE)
[2024-01-16 15:25] LABS: BILIRUBIN,URINE NEGATIVE (NEGATIVE); GLUCOSE, URINE 500 (NEGATIVE); KETONES,URINE TRACE (NEGATIVE); URINE UROBILINOGEN 0.2 mg/dL (0.2 - 1)
[2024-01-16 15:28] LABS: RBC,URINE 0-5 /HPF (0-5)
[2024-01-16 15:29] LABS: BACTERIA,URINE FEW /HPF; EPITHELIAL CELLS,URINE FEW /LPF; WBC,URINE (MAN) >50 /HPF (0-5)
[2024-01-16 15:33] LABS: ALBUMIN 3.8 g/dL (3.5-5.0); ALBUMIN/GLOBULIN RATIO 0.9 (0.8-2.0); ANION GAP 23.2 mmol/L (8-16); BILIRUBIN,TOTAL 0.6 mg/dL (0.2-1.2); CALCIUM 9.9 mg/dL (8.4-10.2); CREATININE, SERUM 1.55 mg/dL (0.57-1.11); POTASSIUM 4.2 mmol/L (3.5-5.1); TOTAL PROTEIN 8.1 g/dL (6.5-8.1)
[2024-01-16] MEDS: LACTATED RINGER'S 1,000 ML INJ ONE (15:39)
[2024-01-16] MEDS: INSULIN REGULAR, HUMAN 100 UNIT/1 ML IV ONE (15:43)
[2024-01-16 16:25] VITALS: PULSE 84; RESP 19
[2024-01-16 17:05] LABS: ANION GAP 21.1 mmol/L (8-16); CALCIUM 9.7 mg/dL (8.4-10.2); CREATININE, SERUM 1.19 mg/dL (0.57-1.11); POTASSIUM 4.1 mmol/L (3.5-5.1)
[2024-01-16] MEDS ORDERED: CEFDINIR300 MG PO (17:20)
[2024-01-16 17:46] VITALS: BP 112/78; PULSE 87; RESP 16; O2SAT 100
[2024-01-17 09:15] LABS: ABG HCO3 24 mmol/L (22-26); ABG PCO2 42 mmHg (35-45); ABG PH 7.36 (7.35-7.45); ABG PO2 100 mmHg (80-105); ABG TCO2 25
== END 2024-01-16 17:45 | disposition home or self-care (01) ==
LOC: ER 14:37
DX: R11.0 Nausea (principal); N39.0 Urinary tract infection, site not specified; R19.7 Diarrhea, unspecified; E10.65 Type 1 diabetes mellitus with hyperglycemia
CPT/HCPCS: 36415; 36600; 80048; 80053; 81001; 82805; 82948; 85025; 99284; J0696; J7121